=== PATIENT | female | born 1950 | race American Indian/Alaskan Native ===

== ENCOUNTER 2017-11-29 02:58 | Inpatient (IN) | payer MEDICARE, OTHER ==
[2017-11-29 03:42] LABS: Basophils # (Auto) 0.1 K/mm3 (0.0-0.1); Basophils % (Auto) 0.7 % (0.0-1.8); Eosinophils # (Auto) 0.3 K/mm3 (0.0-0.4); Eosinophils % (Auto) 3.6 % (0.0-4.3); Hematocrit 42.3 % (30.3-42.9); Lymphocytes # (Auto) 3.3 K/mm3 (1.2-5.4); Lymphocytes % (Auto) 43.4 % (13.4-35.0); Mean Corpuscular HGB Conc 33 % (30-34); Mean Corpuscular Hemoglobin 30 pg (28-32); Mean Corpuscular Volume 90 fl (79-97); Monocytes # (Auto) 0.6 K/mm3 (0.0-0.8); Monocytes % (Auto) 7.4 % (0.0-7.3); Platelet Count 254 K/mm3 (140-440); Red Blood Count 4.71 M/mm3 (3.65-5.03); Red Cell Distribution Width 14.4 % (13.2-15.2)
[2017-11-29] MEDS ORDERED: ZOFRAN ONE ×2 (03:49→09:54)
[2017-11-29] MEDS ORDERED: ZOFRAN IV ONE (03:51)
[2017-11-29] MEDS ORDERED: DILAUDID IV ONE ×3 (03:55→05:14)
[2017-11-29] MEDS ORDERED: DILAUDID ONE (03:56)
[2017-11-29] MEDS ORDERED: NACL 0.9% 1000 ML 1,000 ML IV ONE (03:56)
[2017-11-29 04:25] LABS: Alanine Aminotransferase 21 units/L (7-56); Albumin 4.1 g/dL (3.9-5); BUN/Creatinine Ratio 21; Blood Urea Nitrogen 15 mg/dL (7-17); Calcium 9.6 mg/dL (8.4-10.2); Hemolysis Index 13
[2017-11-29 04:30] LABS: Bilirubin,Urine NEG (Negative); Blood,Urine NEG (Negative); Color,Urine Yellow (Yellow); Mucus,Urine FEW /HPF; Protein,Urine <15 mg/dL mg/dL (Negative); Urobilinogen,Urine < 2.0 mg/dL (<2.0)
[2017-11-29] MEDS ORDERED: NACL ONE (04:30)
--- NOTE | 2017-11-29 05:08 | Cat Scan Report ---
FINAL REPORT EXAM: CT ABDOMEN PELVIS W CON HISTORY: ruq, epigstric pain, vomiting TECHNIQUE: CT images are acquired through the Abdomen and Pelvis following intravenous administration of contrast. Transaxial, coronal and sagittal reformations are provided. PRIORS: None FINDINGS: Partially visualized intrathoracic contents are remarkable for bibasilar atelectasis/scarring. Distended gallbladder without pericholecystic inflammatory findings or calcified cholelithiasis identified. The liver, pancreas, spleen, and adrenal glands are unremarkable. Kidneys show no worrisome lesions, hydronephrosis, or calculi. A right upper pole simple renal cyst measures about 11 millimeters in greatest dimension. Urinary bladder is unremarkable. Pelvic phleboliths are noted. Prior hysterectomy. Small and large bowel are normal in caliber. Extensive sigmoid diverticulosis without surrounding inflammatory findings. Appendix is normal. No free air, free fluid, or lymphadenopathy identified. Aorta is normal in course and caliber. Superficial soft tissues are unremarkable. No acute or aggressive appearing skeletal findings. IMPRESSION: Distended gallbladder without calcified cholelithiasis or pericholecystic inflammatory findings identified. Consider ultrasound follow-up.
--- NOTE | 2017-11-29 05:15 | Emergency Department Report ---
ED Abdominal Pain HPI - General Chief Complaint: Abdominal Pain Stated Complaint: ABDOMINAL PAIN Time Seen by Provider: 11/29/17 03:47 Source: patient Mode of arrival: Ambulatory Limitations: No Limitations - History of Present Illness Initial Comments: 57 year old female with a past surgical history of hysterectomy and no past medical history presents to hospital with complaints of abdominal pain with sudden onset at 1 AM. Pain started after she ate a grilled cheese sandwich. Pain in the right upper quadrant pain and epigastric pain that is constant, sharp, and worse with palpation. Pain rated 8/10 in intensity. No alleviating factors. Positive nausea with vomiting that started after arrival to the ED. She denies diarrhea or fever. Severity scale (0 -10): 7 - Related Data Previous Rx's Medication Instructions Recorded Last Taken Type Ondansetron [Zofran Odt] 4 mg PO Q8HR PRN #20 tab.rapdis 11/29/17 Unknown Rx Oxycodone HCl/Acetaminophen 1 each PO Q6HR PRN #20 tablet 11/29/17 Unknown Rx [Percocet 2.5/325 mg] Allergies Allergy/AdvReac Type Severity Reaction Status Date / Time naproxen AdvReac Unknown Verified 11/29/17 03:15 vancomycin AdvReac Itching Verified 11/29/17 14:24 ED Review of Systems ROS: Stated complaint: ABDOMINAL PAIN Other details as noted in HPI Comment: All other systems reviewed and negative ED Past Medical Hx - Past Medical History Previous Medical History?: No - Surgical History Past Surgical History?: Yes Additional Surgical History: hysterectomy - Social History Smoking Status: Never Smoker Substance Use Type: None - Medications Home Medications: Home Medications Medication Instructions Recorded Confirmed Last Taken Type Ondansetron [Zofran Odt] 4 mg PO Q8HR PRN #20 tab.rapdis 11/29/17 Unknown Rx Oxycodone HCl/Acetaminophen 1 each PO Q6HR PRN #20 tablet 11/29/17 Unknown Rx [Percocet 2.5/325 mg] ED Physical Exam - General Limitations: No Limitations - Other Other exam information: General: No limitations, moderate distress secondary to pain Head exam: Atraumatic, normocephalic Eyes exam: Normal appearance, nonicteric sclera ENT: Moist mucous membrane, normal oropharynx Neck exam: Normal inspection, full range of motion, no meningismus nontender Respiratory exam: Clear to auscultation bilateral, no wheezes, rales, crackles Cardiovascular: Normal rate and rhythm, normal heart sounds Abdomen: Soft, nondistended, right upper quadrant and epigastric tenderness. Normal bowel sounds. No rebound or guarding Extremity: Full range of motion normal inspection no deformity Back: Normal Inspection, full range of motion, no tenderness Neurologic: Alert, oriented x3, cranial nerves intact, no motor or sensory deficit Psychiatric: normal affect, normal mood Skin: Warm, dry, intact ED Course Vital Signs 11/29/17 11/29/17 11/29/17 02:58 03:11 03:58 Temperature 97.6 F 97.6 F Pulse Rate 93 H 95 H Respiratory 18 18 18 Rate Blood Pressure 172/102 172/102 Blood Pressure [Right] O2 Sat by Pulse 99 99 Oximetry 11/29/17 11/29/17 11/29/17 04:28 04:29 05:17 Temperature Pulse Rate 89 Respiratory 18 18 18 Rate Blood Pressure Blood Pressure 136/65 [Right] O2 Sat by Pulse 99 Oximetry 11/29/17 11/29/17 07:00 11:04 Temperature 97.6 F Pulse Rate 92 H Respiratory 16 16 Rate Blood Pressure Blood Pressure 156/76 126/70 [Right] O2 Sat by Pulse 100 100 Oximetry - Reevaluation(s) Reevaluation #1: 11/29/17 05:15 After 1 mg of Dilaudid. She continues to have significant pain and states it is only a little bit better. No further vomiting after Zofran. Patient also received 1 L normal saline. Patient informed that her gallbladder looks distended on ct and she will be sent to ultrasound for further evaluation. Additional Dilaudid 0.5 mg order. - Consultations Consultation #1: Dr Guzman was consulted prior to admission ED Medical Decision Making - Lab Data Result diagrams: 11/30/17 06:08 11/30/17 06:08 - Radiology Data Radiology results: report reviewed CT abdomen and pelvis IV contrast: Distended gallbladder without calcified cholelithiasis or pericholecystic inflammatory findings. Consider ultrasound diverticulosis without diverticulitis. Right renal cyst - Medical Decision Making Abdominal pain Likely secondary to gallbladder CT shows distended gallbladder No leukocytosis, normal LFTs, and no fever Patient requiring multiple doses of narcotics for pain control Ultrasound pending and oncoming physician (Dr Villeda) to follow She may need surgical consultation if she continues to have intractable pain ultrasound reveals surgical treatment is necessary - Differential Diagnosis cholecystitis, pancreatitis, biliary colic, renal colic, PUD Critical care attestation.: If time is entered above; I have spent that time in minutes in the direct care of this critically ill patient, excluding procedure time. ED Disposition Clinical Impression: Biliary colic, Intractable abdominal pain Disposition: OP ADMIT IP TO THIS HOSP Is pt being admited?: No Condition: Stable Time of Disposition: 06:00 (admited to hospitalist)
--- NOTE | 2017-11-29 06:21 | Ultrasound Report ---
FINAL REPORT EXAM: US ABDOMEN LIMITED HISTORY: ruq/epigstric pain COMPARISONS: CT abdomen pelvis of the same date FINDINGS: Grayscale ultrasound evaluation of the right upper abdomen Liver is normal in size and contour. Hepatic parenchymal echogenicity is within normal limits. No parenchymal lesion identified. No intra or extrahepatic biliary ductal dilatation. The common duct measures approximately 4-5 millimeters in caliber. The gallbladder is full of sludge and stones measuring up to at least 15 millimeters in greatest dimension. Gallbladder wall measures approximately 3 millimeters in thickness. Imaged portion of the pancreatic head is sonographically unremarkable. The remainder of the pancreas is not well seen secondary to overlying bowel gas. No abdominal ascites or free fluid in Tesfaye's pouch. The right kidney measures up to 7.1 for cm in length and is without hydronephrosis or echogenic shadowing foci to suggest nephrolithiasis. IMPRESSION: The gallbladder is full of sludge and stones with mild/equivocal wall thickening suggestive of cholecystitis. Consider nuclear medicine hepatobiliary scan if clinical findings are equivocal or discordant.
--- NOTE | 2017-11-29 06:57 | Emergency Department Report ---
Blank Doc - Documentation Documentation: This patient was signed out to me by my colleague overnight, Dr. Myers with an ultrasound showing concern for equivocal cholecystitis with gallstones, gallbladder sludge and some mild wall thickening. I spoke with the surgeon instrumentation fitter, Dr. Guzman, who is agreed to see the patient is a consult and agrees with the plan to get a HIDA scan and like the patient admitted to the hospitalist service. I also spoke with Dr. Agustin at [facility] and after their discussion with a [facility] surgeon, we have been given permission to keep the patient here for further evaluation and treatment.
[2017-11-29] MEDS ORDERED: TYLENOL PO PRN (08:40)
[2017-11-29] MEDS ORDERED: ZOFRAN IV PRN (08:40)
[2017-11-29] MEDS ORDERED: SODIUM CHLORIDE FLUSH SYRINGE 10 ML IV PRN (08:40)
--- NOTE | 2017-11-29 08:40 | History and Physical Report ---
History of Present Illness Date of examination: 11/29/17 Date of admission: 11/29/17 Chief complaint: abd pain History of present illness: The patient is a 50 year old female admitted with a 3 day history of body aches , chills, chest pain, mild diarrhea and an increase in LLQ discomfort which she has had for at least a month. Consultation was requested for abdominal pain. She has had no fever and denies passing BRBPR or melenic stools. No history of weight loss. The patient has never had a colonoscopy. CT scan revealed no definite diverticulitis although the colon was collapsed in the left side and less sensitive for evaluation of wall thickening. An ultrasound showing concern for equivocal cholecystitis with gallstones, gallbladder sludge and some mild wall thickening. The ER physician spoke with Dr. Agustin at [facility] and after their discussion with a [facility] surgeon, gave permission to keep the patient here for further evaluation and treatment. The patient will be admitted to the hospitalist service. Patient denies any shortness of breath. No headache or visual disturbances. Past History Past Medical History: No medical history Past Surgical History: hysterectomy Social history: no significant social history Family history: no significant family history Medications and Allergies Allergies Allergy/AdvReac Type Severity Reaction Status Date / Time naproxen AdvReac Unknown Verified 11/29/17 03:15 Home Medications Medication Instructions Recorded Confirmed Last Taken Type Ondansetron [Zofran Odt] 4 mg PO Q8HR PRN #20 tab.rapdis 11/29/17 Unknown Rx Oxycodone HCl/Acetaminophen 1 each PO Q6HR PRN #20 tablet 11/29/17 Unknown Rx [Percocet 2.5/325 mg] Review of Systems All systems: negative Exam - Constitutional Vitals: Temp Pulse Resp BP Pulse Ox 97.6 F 89 18 136/65 99 11/29/17 03:11 11/29/17 05:17 11/29/17 05:17 11/29/17 05:17 11/29/17 05:17 General appearance: Present: no acute distress, well-nourished - EENT Eyes: Present: PERRL ENT: hearing intact, clear oral mucosa - Neck Neck: Present: supple, normal ROM - Respiratory Respiratory effort: normal Respiratory: bilateral: diminished - Cardiovascular Heart Sounds: Present: S1 & S2. Absent: rub, click - Extremities Extremities: pulses symmetrical, No edema Peripheral Pulses: within normal limits - Abdominal General gastrointestinal: Present: soft, tender, non-distended, normal bowel sounds Localized gastrointestinal: tender: RUQ Female genitourinary: Present: normal - Integumentary Integumentary: Present: clear, warm, dry - Musculoskeletal Musculoskeletal: gait normal, strength equal bilaterally - Psychiatric Psychiatric: appropriate mood/affect, intact judgment & insight - Neurologic Neurologic: CNII-XII intact, moves all extremities Results - Labs CBC & Chem 7: 11/29/17 03:23 11/29/17 03:23 Labs: Laboratory Last Values WBC 7.7 K/mm3 (4.5-11.0) 11/29/17 03:23 RBC 4.71 M/mm3 (3.65-5.03) 11/29/17 03:23 Hgb 14.0 gm/dl (10.1-14.3) 11/29/17 03:23 Hct 42.3 % (30.3-42.9) 11/29/17 03:23 MCV 90 fl (79-97) 11/29/17 03:23 MCH 30 pg (28-32) 11/29/17 03:23 MCHC 33 % (30-34) 11/29/17 03:23 RDW 14.4 % (13.2-15.2) 11/29/17 03:23 Plt Count 254 K/mm3 (140-440) 11/29/17 03:23 Lymph % (Auto) 43.4 % (13.4-35.0) H 11/29/17 03:23 Luce % (Auto) 7.4 % (0.0-7.3) H 11/29/17 03:23 Eos % (Auto) 3.6 % (0.0-4.3) 11/29/17 03:23 Baso % (Auto) 0.7 % (0.0-1.8) 11/29/17 03:23 Lymph # 3.3 K/mm3 (1.2-5.4) 11/29/17 03:23 Luce # 0.6 K/mm3 (0.0-0.8) 11/29/17 03:23 Eos # 0.3 K/mm3 (0.0-0.4) 11/29/17 03:23 Baso # 0.1 K/mm3 (0.0-0.1) 11/29/17 03:23 Seg Neutrophils % 44.9 % (40.0-70.0) 11/29/17 03:23 Seg Neutrophils # 3.4 K/mm3 (1.8-7.7) 11/29/17 03:23 Sodium 140 mmol/L (137-145) 11/29/17 03:23 Potassium 4.5 mmol/L (3.6-5.0) 11/29/17 03:23 Chloride 101.0 mmol/L (98-107) 11/29/17 03:23 Carbon Dioxide 28 mmol/L (22-30) 11/29/17 03:23 Anion Gap 16 mmol/L 11/29/17 03:23 BUN 15 mg/dL (7-17) 11/29/17 03:23 Creatinine 0.7 mg/dL (0.7-1.2) 11/29/17 03:23 Estimated GFR > 60 ml/min 11/29/17 03:23 BUN/Creatinine Ratio 21 % 11/29/17 03:23 Glucose 137 mg/dL (65-100) H 11/29/17 03:23 Calcium 9.6 mg/dL (8.4-10.2) 11/29/17 03:23 Total Bilirubin < 0.20 mg/dL (0.1-1.2) 11/29/17 03:23 AST 18 units/L (5-40) 11/29/17 03:23 ALT 21 units/L (7-56) 11/29/17 03:23 Alkaline Phosphatase 123 units/L (35-129) 11/29/17 03:23 Total Protein 7.7 g/dL (6.3-8.2) 11/29/17 03:23 Albumin 4.1 g/dL (3.9-5) 11/29/17 03:23 Albumin/Globulin Ratio 1.1 % 11/29/17 03:23 Lipase 33 units/L (13-60) 11/29/17 03:23 Urine Color Yellow (Yellow) 11/29/17 03:50 Urine Turbidity Clear (Clear) 11/29/17 03:50 Urine pH 5.0 (5.0-7.0) 11/29/17 03:50 Ur Specific [place] 1.018 (1.003-1.030) 11/29/17 03:50 Urine Protein <15 mg/dl mg/dL (Negative) 11/29/17 03:50 Urine Glucose (UA) Neg mg/dL (Negative) 11/29/17 03:50 Urine Ketones Neg mg/dL (Negative) 11/29/17 03:50 Urine Blood Neg (Negative) 11/29/17 03:50 Urine Nitrite Neg (Negative) 11/29/17 03:50 Urine Bilirubin Neg (Negative) 11/29/17 03:50 Urine Urobilinogen < 2.0 mg/dL (<2.0) 11/29/17 03:50 Ur Leukocyte Esterase Neg (Negative) 11/29/17 03:50 Urine WBC (Auto) 1.0 /HPF (0.0-6.0) 11/29/17 03:50 Urine RBC (Auto) 1.0 /HPF (0.0-6.0) 11/29/17 03:50 U Epithel Cells (Auto) 4.0 /HPF (0-13.0) 11/29/17 03:50 Urine WBC Clumps 1+ /HPF 11/29/17 03:50 Urine Mucus Few /HPF 11/29/17 03:50 Assessment and Plan Assessment and plan: Acute cholecystitis. Ultrasound reveals gallbladder full of slow its/stones with wall thickening suggestive of cholecystitis. We will obtain HIDA scan and surgical consultation for further evaluation. The patient will be admitted and started on IV antibiotics. Abdominal pain. Etiology secondary to above.
[2017-11-29] MEDS ORDERED: VANCOMYCIN PHARMACY TO DOSE IV SCH (09:00)
[2017-11-29] MEDS ORDERED: NACL 0.9% 1000 ML 1,000 ML IV SCH (09:00)
[2017-11-29] MEDS ORDERED: VANCOMYCIN 1,750 MG in NACL 0.9% 500 ML 500 ML IV ONE (09:15)
[2017-11-29] MEDS ORDERED: MORPHINE ONE (09:54)
[2017-11-29] MEDS: MORPHINE IV PRN ×3 (10:03→23:55)
[2017-11-29] MEDS: SODIUM CHLORIDE FLUSH SYRINGE 10 ML IV SCH ×2 (11:01→22:55)
[2017-11-29] MEDS ORDERED: LOVENOX SUB-Q ONE (11:08)
[2017-11-29] MEDS: LOVENOX SUB-Q SCH (11:24)
[2017-11-29] MEDS ORDERED: ZOSYN/NS 4.5GM/100ML 4.5 GM/100 ML VIAL IV SCH (14:00)
--- NOTE | 2017-11-29 14:03 | Progress Note ---
Assessment and Plan Full consult dictated 11/29/17 Chief complaint: abd pain History of present illness: The patient is a 50 year old female admitted with a 3 day history of body aches , chills, chest pain, mild diarrhea and an increase in LLQ discomfort which she has had for at least a month. Consultation was requested for abdominal pain. She has had no fever and denies passing BRBPR or melenic stools. No history of weight loss. The patient has never had a colonoscopy. CT scan revealed no definite diverticulitis although the colon was collapsed in the left side and less sensitive for evaluation of wall thickening. An ultrasound showing concern for equivocal cholecystitis with gallstones, gallbladder sludge and some mild wall thickening. The ER physician spoke with Dr. Agustin at [facility] and after their discussion with a [facility] surgeon, gave permission to keep the patient here for further evaluation and treatment. The patient will be admitted to the hospitalist service. Patient denies any shortness of breath. No headache or visual disturbances. Past History Past Medical History: No medical history Past Surgical History: hysterectomy Social history: no significant social history Family history: no significant family history Pt feeling much better this am. Abd soft, mild epig & RUQ tenderness GB U/S - sludge & stones r/o acute cholecystitis awaiting HIDA scan had reaction to Vanc. d/c Vanc & Zosyn will switch to Levaquin Selected Entries 11/29/17 11/29/17 12:26 12:32 Temperature 98.2 F Pulse Rate 89 Blood Pressure 115/66 Laboratory Tests 11/29/17 11/29/17 11/29/17 03:23 03:23 03:23 WBC 7.7 Hgb 14.0 Hct 42.3 Sodium 140 Potassium 4.5 Chloride 101.0 Carbon Dioxide 28 BUN 15 Creatinine 0.7 Total Bilirubin < 0.20 AST 18 ALT 21 Alkaline Phosphatase 123 Lipase 33 Objective Vital Signs - 12hr 11/29/17 11/29/17 11/29/17 02:58 03:11 03:58 Temperature 97.6 F 97.6 F Pulse Rate 93 H 95 H Respiratory 18 18 18 Rate Blood Pressure 172/102 172/102 Blood Pressure [Right] O2 Sat by Pulse 99 99 Oximetry 11/29/17 11/29/17 11/29/17 04:28 04:29 05:17 Temperature Pulse Rate 89 Respiratory 18 18 18 Rate Blood Pressure Blood Pressure 136/65 [Right] O2 Sat by Pulse 99 Oximetry 11/29/17 11/29/17 11/29/17 07:00 11:04 12:26 Temperature 97.6 F 98.2 F Pulse Rate 92 H Respiratory 16 16 15 Rate Blood Pressure 115/66 Blood Pressure 156/76 126/70 [Right] O2 Sat by Pulse 100 100 Oximetry 11/29/17 12:32 Temperature Pulse Rate 89 Respiratory Rate Blood Pressure Blood Pressure [Right] O2 Sat by Pulse Oximetry - Labs 11/29/17 03:23 11/29/17 03:23 Diabetes panel 11/29/17 Range/Units 03:23 Sodium 140 (137-145) mmol/L Potassium 4.5 (3.6-5.0) mmol/L Chloride 101.0 (98-107) mmol/L Carbon Dioxide 28 (22-30) mmol/L BUN 15 (7-17) mg/dL Creatinine 0.7 (0.7-1.2) mg/dL Glucose 137 H (65-100) mg/dL Calcium 9.6 (8.4-10.2) mg/dL AST 18 (5-40) units/L ALT 21 (7-56) units/L Alkaline Phosphatase 123 (35-129) units/L Total Protein 7.7 (6.3-8.2) g/dL Albumin 4.1 (3.9-5) g/dL Calcium panel 11/29/17 Range/Units 03:23 Calcium 9.6 (8.4-10.2) mg/dL Albumin 4.1 (3.9-5) g/dL Pituitary panel 11/29/17 Range/Units 03:23 Sodium 140 (137-145) mmol/L Potassium 4.5 (3.6-5.0) mmol/L Chloride 101.0 (98-107) mmol/L Carbon Dioxide 28 (22-30) mmol/L BUN 15 (7-17) mg/dL Creatinine 0.7 (0.7-1.2) mg/dL Glucose 137 H (65-100) mg/dL Calcium 9.6 (8.4-10.2) mg/dL Adrenal panel 11/29/17 Range/Units 03:23 Sodium 140 (137-145) mmol/L Potassium 4.5 (3.6-5.0) mmol/L Chloride 101.0 (98-107) mmol/L Carbon Dioxide 28 (22-30) mmol/L BUN 15 (7-17) mg/dL Creatinine 0.7 (0.7-1.2) mg/dL Glucose 137 H (65-100) mg/dL Calcium 9.6 (8.4-10.2) mg/dL Total Bilirubin < 0.20 (0.1-1.2) mg/dL AST 18 (5-40) units/L ALT 21 (7-56) units/L Alkaline Phosphatase 123 (35-129) units/L Total Protein 7.7 (6.3-8.2) g/dL Albumin 4.1 (3.9-5) g/dL
--- NOTE | 2017-11-29 14:20 | Event Note ---
Date: 11/29/17 Nurse reports patient had a reaction to vancomycin with pruritis. Therefore, we will switch antibiotics to Levaquin.
[2017-11-29] MEDS: D5/0.45NS 1,000 ML IV SCH (14:48)
[2017-11-29] MEDS: LEVAQUIN 750MG/150ML 750 MG/150 ML BAG IV SCH (14:59)
[2017-11-29] MEDS ORDERED: VANCOMYCIN 1,250 MG in NACL 0.9% 250ML 250 ML IV SCH (22:00)
--- NOTE | 2017-11-30 00:11 | Consultation ---
REASON FOR CONSULTATION: Rule out cholecystitis. HISTORY OF PRESENT ILLNESS: The patient is a 67-year-old pleasant female, who was admitted to the Emergency Room with recent onset of epigastric and right upper quadrant abdominal pain accompanied by nausea and vomiting. PAST MEDICAL HISTORY: Pertinent for GERD. PAST SURGICAL HISTORY: Status post MONIKA, also bilateral knee arthroscopies. ALLERGIES: ALLERGIC TO NAPROSYN AND ASPIRIN, which causes her to have a " MEDICATIONS: Include Prilosec for her GERD. FAMILY HISTORY: Ovarian cancer. SOCIAL HISTORY: Occasional ethanol intake, but quit smoking approximately 40 years ago. REVIEW OF SYSTEMS: Noncontributory. PHYSICAL EXAMINATION: GENERAL: At this time reveals the patient to be awake, alert, cooperative, in no acute distress. VITAL SIGNS: Showed her to be afebrile with a temperature of 98.2, blood pressure is 115/66, pulse of 89, respirations of 15. HEENT: Pupils are equal and reactive to light and accommodation. Sclerae are nonicteric. ABDOMEN: Examination of the abdomen reveals her to be moderately obese, soft. There is mild epigastric and right upper quadrant tenderness with very minimal guarding and no rebound at this time. Bowel sounds are present. LABORATORY DATA: Lab work at present includes a CBC, which shows a white count of 7.7, H and H is 14 and 42. Electrolytes are essentially within normal limits. LFTs are also essentially normal including a total bilirubin of less than 0.2, AST is 18, ALT 21, alkaline phosphatase is 123, lipase is 33. A CT scan of the abdomen has been performed, which revealed distended gallbladder, but without any calcified stones and an ultrasound was recommended. Subsequent gallbladder ultrasound was performed, which reveals a gallbladder full of sludge and stones with questionable mild wall thickening and a HIDA scan is recommended. The patient states she is feeling last night on admission. IMPRESSION: At this time is that of a 67-year-old female with: 1. No real medical problems other than gastroesophageal reflux disease. 2. Rule out acute cholecystitis versus biliary colic. RECOMMENDATIONS: To keep the patient n.p.o. at this time. The patient was on vancomycin and Zosyn, but apparently just had a reaction to her dose of vancomycin. Thus, we will discontinue the vancomycin and Zosyn and start IV Levaquin. Also, we will await the HIDA scan results and follow her with you. Thank you very much for consultation. JOB# [id number] VÍCTRO/ROSEY
[2017-11-30] MEDS: D5/0.45NS 1,000 ML IV SCH ×3 (00:21→21:09)
[2017-11-30 06:54] LABS: Basophils % (Auto) 0.6 % (0.0-1.8); Eosinophils # (Auto) 0.2 K/mm3 (0.0-0.4); Eosinophils % (Auto) 3.9 % (0.0-4.3); Hematocrit 36.1 % (30.3-42.9); Hemoglobin 11.5 gm/dl (10.1-14.3); Lymphocytes # (Auto) 2.1 K/mm3 (1.2-5.4); Lymphocytes % (Auto) 45.3 % (13.4-35.0); Mean Corpuscular HGB Conc 32 % (30-34); Mean Corpuscular Hemoglobin 29 pg (28-32); Mean Corpuscular Volume 92 fl (79-97); Monocytes # (Auto) 0.4 K/mm3 (0.0-0.8); Monocytes % (Auto) 8.9 % (0.0-7.3); Platelet Count 210 K/mm3 (140-440); Red Cell Distribution Width 14.6 % (13.2-15.2)
[2017-11-30 07:24] LABS: BUN/Creatinine Ratio 10; Blood Urea Nitrogen 7 mg/dL (7-17); Calcium 8.3 mg/dL (8.4-10.2); Hemolysis Index 1
[2017-11-30] MEDS: SODIUM CHLORIDE FLUSH SYRINGE 10 ML IV SCH ×2 (08:00→21:10)
[2017-11-30] MEDS: LOVENOX SUB-Q SCH (10:08)
--- NOTE | 2017-11-30 10:33 | Progress Note ---
Assessment and Plan Assessment and plan: Acute cholecystitis. Ultrasound reveals gallbladder full of sludge/stones with wall thickening suggestive of cholecystitis. Await HIDA scan results. Continue IV antibiotics. Surgery following. Abdominal pain. Etiology secondary to above. History Interval history: No new issues overnight. Hospitalist Physical - Constitutional Vitals: Temp Pulse Resp BP Pulse Ox 99.1 F 115 H 18 103/62 100 11/29/17 22:41 11/29/17 22:41 11/29/17 23:55 11/29/17 22:41 11/29/17 22:41 General appearance: Present: no acute distress, well-nourished - EENT Eyes: Present: PERRL, EOM intact ENT: hearing intact, clear oral mucosa, dentition normal - Neck Neck: Present: supple, normal ROM - Respiratory Respiratory effort: normal Respiratory: bilateral: CTA - Cardiovascular Rhythm: regular Heart Sounds: Present: S1 & S2. Absent: gallop, rub - Extremities Extremities: no ischemia, No edema, Full ROM - Abdominal General gastrointestinal: soft, non-tender, non-distended, normal bowel sounds - Integumentary Integumentary: Present: clear, warm, dry - Neurologic Neurologic: CNII-XII intact, moves all extremities Results - Labs CBC & Chem 7: 11/30/17 06:08 11/30/17 06:08 Labs: Laboratory Last Values WBC 4.7 K/mm3 (4.5-11.0) 11/30/17 06:08 RBC 3.90 M/mm3 (3.65-5.03) 11/30/17 06:08 Hgb 11.5 gm/dl (10.1-14.3) 11/30/17 06:08 Hct 36.1 % (30.3-42.9) D 11/30/17 06:08 MCV 92 fl (79-97) 11/30/17 06:08 MCH 29 pg (28-32) 11/30/17 06:08 MCHC 32 % (30-34) 11/30/17 06:08 RDW 14.6 % (13.2-15.2) 11/30/17 06:08 Plt Count 210 K/mm3 (140-440) 11/30/17 06:08 Lymph % (Auto) 45.3 % (13.4-35.0) H 11/30/17 06:08 [place] % (Auto) 8.9 % (0.0-7.3) H 11/30/17 06:08 Eos % (Auto) 3.9 % (0.0-4.3) 11/30/17 06:08 Baso % (Auto) 0.6 % (0.0-1.8) 11/30/17 06:08 Lymph # 2.1 K/mm3 (1.2-5.4) 11/30/17 06:08 [place] # 0.4 K/mm3 (0.0-0.8) 11/30/17 06:08 Eos # 0.2 K/mm3 (0.0-0.4) 11/30/17 06:08 Baso # 0.0 K/mm3 (0.0-0.1) 11/30/17 06:08 Seg Neutrophils % 41.3 % (40.0-70.0) 11/30/17 06:08 Seg Neutrophils # 1.9 K/mm3 (1.8-7.7) 11/30/17 06:08 Sodium 140 mmol/L (137-145) 11/30/17 06:08 Potassium 3.6 mmol/L (3.6-5.0) 11/30/17 06:08 Chloride 102.6 mmol/L (98-107) 11/30/17 06:08 Carbon Dioxide 28 mmol/L (22-30) 11/30/17 06:08 Anion Gap 13 mmol/L 11/30/17 06:08 BUN 7 mg/dL (7-17) 11/30/17 06:08 Creatinine 0.7 mg/dL (0.7-1.2) 11/30/17 06:08 Estimated GFR > 60 ml/min 11/30/17 06:08 BUN/Creatinine Ratio 10 % 11/30/17 06:08 Glucose 133 mg/dL (65-100) H 11/30/17 06:08 Calcium 8.3 mg/dL (8.4-10.2) L 11/30/17 06:08 Total Bilirubin < 0.20 mg/dL (0.1-1.2) 11/29/17 03:23 AST 18 units/L (5-40) 11/29/17 03:23 ALT 21 units/L (7-56) 11/29/17 03:23 Alkaline Phosphatase 123 units/L (35-129) 11/29/17 03:23 Total Protein 7.7 g/dL (6.3-8.2) 11/29/17 03:23 Albumin 4.1 g/dL (3.9-5) 11/29/17 03:23 Albumin/Globulin Ratio 1.1 % 11/29/17 03:23 Lipase 33 units/L (13-60) 11/29/17 03:23 Urine Color Yellow (Yellow) 11/29/17 03:50 Urine Turbidity Clear (Clear) 11/29/17 03:50 Urine pH 5.0 (5.0-7.0) 11/29/17 03:50 Ur Specific [place] 1.018 (1.003-1.030) 11/29/17 03:50 Urine Protein <15 mg/dl mg/dL (Negative) 11/29/17 03:50 Urine Glucose (UA) Neg mg/dL (Negative) 11/29/17 03:50 Urine Ketones Neg mg/dL (Negative) 11/29/17 03:50 Urine Blood Neg (Negative) 11/29/17 03:50 Urine Nitrite Neg (Negative) 11/29/17 03:50 Urine Bilirubin Neg (Negative) 11/29/17 03:50 Urine Urobilinogen < 2.0 mg/dL (<2.0) 11/29/17 03:50 Ur Leukocyte Esterase Neg (Negative) 11/29/17 03:50 Urine WBC (Auto) 1.0 /HPF (0.0-6.0) 11/29/17 03:50 Urine RBC (Auto) 1.0 /HPF (0.0-6.0) 11/29/17 03:50 U Epithel Cells (Auto) 4.0 /HPF (0-13.0) 11/29/17 03:50 Urine WBC Clumps 1+ /HPF 11/29/17 03:50 Urine Mucus Few /HPF 11/29/17 03:50
--- NOTE | 2017-11-30 10:59 | Nuclear Medicine Report ---
HEPATOBILIARY SCAN: History: Abdominal pain, gallstones. Following the injection of the radionuclide, serial scanning was obtained over the right upper quadrant. Initial imaging of the liver demonstrates a relatively normal activity pattern. Progressive concentration of the radionuclide in the bile ducts, with filling of both the gallbladder and small bowel, is identified within a normal time period. IMPRESSION: Normal biliary system.
--- NOTE | 2017-11-30 11:58 | Progress Note ---
Assessment and Plan Pt feeling well. no further pain Abd soft, non tender at present HIDA - GB visualized. neg acute cholecystitis attempt low fat cl liq diet Selected Entries 11/29/17 11/29/17 11/29/17 22:34 22:41 23:55 Temperature 99.1 F Pulse Rate 79 Respiratory 18 Rate Blood Pressure 103/62 Laboratory Tests 11/30/17 06:08 WBC 4.7 Hgb 11.5 Hct 36.1 D Objective - Labs 11/30/17 06:08 11/30/17 06:08 Diabetes panel 11/30/17 Range/Units 06:08 Sodium 140 (137-145) mmol/L Potassium 3.6 (3.6-5.0) mmol/L Chloride 102.6 (98-107) mmol/L Carbon Dioxide 28 (22-30) mmol/L BUN 7 (7-17) mg/dL Creatinine 0.7 (0.7-1.2) mg/dL Glucose 133 H (65-100) mg/dL Calcium 8.3 L (8.4-10.2) mg/dL Calcium panel 11/30/17 Range/Units 06:08 Calcium 8.3 L (8.4-10.2) mg/dL Pituitary panel 11/30/17 Range/Units 06:08 Sodium 140 (137-145) mmol/L Potassium 3.6 (3.6-5.0) mmol/L Chloride 102.6 (98-107) mmol/L Carbon Dioxide 28 (22-30) mmol/L BUN 7 (7-17) mg/dL Creatinine 0.7 (0.7-1.2) mg/dL Glucose 133 H (65-100) mg/dL Calcium 8.3 L (8.4-10.2) mg/dL Adrenal panel 11/30/17 Range/Units 06:08 Sodium 140 (137-145) mmol/L Potassium 3.6 (3.6-5.0) mmol/L Chloride 102.6 (98-107) mmol/L Carbon Dioxide 28 (22-30) mmol/L BUN 7 (7-17) mg/dL Creatinine 0.7 (0.7-1.2) mg/dL Glucose 133 H (65-100) mg/dL Calcium 8.3 L (8.4-10.2) mg/dL
[2017-11-30] MEDS: LEVAQUIN 750MG/150ML 750 MG/150 ML BAG IV SCH (14:12)
[2017-11-30] MEDS: MORPHINE IV PRN (19:46)
[2017-12-01] MEDS: D5/0.45NS 1,000 ML IV SCH (04:10)
[2017-12-01] MEDS: MORPHINE IV PRN (04:21)
[2017-12-01 08:08] LABS: Basophils % (Auto) 0.7 % (0.0-1.8); Eosinophils # (Auto) 0.2 K/mm3 (0.0-0.4); Eosinophils % (Auto) 4.7 % (0.0-4.3); Hematocrit 35.6 % (30.3-42.9); Hemoglobin 11.9 gm/dl (10.1-14.3); Lymphocytes # (Auto) 2.3 K/mm3 (1.2-5.4); Lymphocytes % (Auto) 44.7 % (13.4-35.0); Mean Corpuscular HGB Conc 34 % (30-34); Mean Corpuscular Hemoglobin 30 pg (28-32); Mean Corpuscular Volume 90 fl (79-97); Monocytes # (Auto) 0.4 K/mm3 (0.0-0.8); Monocytes % (Auto) 7.5 % (0.0-7.3); Platelet Count 194 K/mm3 (140-440); Red Blood Count 3.96 M/mm3 (3.65-5.03); Red Cell Distribution Width 14.7 % (13.2-15.2)
[2017-12-01 08:33] LABS: BUN/Creatinine Ratio 8; Blood Urea Nitrogen 5 mg/dL (7-17); Calcium 8.7 mg/dL (8.4-10.2); Hemolysis Index 7
[2017-12-01 09:15] VITALS: BP 135/78
--- NOTE | 2017-12-01 09:28 | Discharge Summary ---
Providers - Providers Date of Admission: 11/29/17 08:42 Date of discharge: 12/01/17 Attending physician: SIDDHARTH KING 11/29/17 06:33 Consult to Physician [CONS] Routine Comment: Consulting Provider: ESTUARDO ASHLEY Physician Instructions: Reason For Exam: cholecystitis` Primary care physician: DRAKE RESTREPO Hospitalization Condition: Stable Hospital course: 50 year old female admitted with a 3 day history of body aches, chills, chest pain, mild diarrhea and an increase in RUQ discomfort which she has had for at least a month. Ultrasound revealed gallbladder full of sludge/stones with wall thickening suggestive of cholecystitis. Acute cholecystitis was ruled out with HIDA scan. Patient will continue antibiotics and follow up with general surgeon Dr. Porter within 3 days for elective cholecystectomy. Discharge diagnoses Abdominal pain Gallbladder sludge and stones Disposition: TO HOME OR SELFCARE Time spent for discharge: 33 minutes Core Measure Documentation - Palliative Care Palliative Care/ Comfort Measures: Not Applicable - Core Measures Any of the following diagnoses?: none Exam - Constitutional Vitals: Temp Pulse Resp BP Pulse Ox 98.2 F 75 18 135/78 96 12/01/17 07:42 12/01/17 07:42 12/01/17 07:42 12/01/17 07:42 12/01/17 07:42 General appearance: Present: no acute distress, well-nourished - EENT Eyes: Present: PERRL ENT: hearing intact, clear oral mucosa - Neck Neck: Present: supple, normal ROM - Respiratory Respiratory effort: normal Respiratory: bilateral: CTA - Cardiovascular Heart Sounds: Present: S1 & S2. Absent: rub, click - Extremities Extremities: pulses symmetrical, No edema Peripheral Pulses: within normal limits - Abdominal General gastrointestinal: Present: soft, non-tender, non-distended, normal bowel sounds - Integumentary Integumentary: Present: clear, warm, dry - Musculoskeletal Musculoskeletal: gait normal, strength equal bilaterally - Psychiatric Psychiatric: appropriate mood/affect, intact judgment & insight - Neurologic Neurologic: CNII-XII intact, moves all extremities Plan Activity: fall precautions Weight Bearing Status: Weight Bear as Tolerated Diet: low fat, low cholesterol, advance as tolerated Follow up with: ESTUARDO ASHLEY MD [Staff Physician] - 2-3 Days (surgeon ) Prescriptions: Levofloxacin [Levaquin TAB] 750 mg PO DAILY #3 tablet Ondansetron [Zofran Odt] 4 mg PO Q8HR #14 tab.rapdis Oxycodone HCl/Acetaminophen [Percocet 2.5/325 mg] 1 each PO Q6HR PRN #20 tablet PRN Reason: Pain
--- NOTE | 2017-12-01 09:53 | Progress Note ---
Assessment and Plan Pt in shower. Family states doing well without compl. jenny diet surgically stable if d/c'ed today, rto this Wednesday will schedule semi-elective lap GB at that time Selected Entries 12/01/17 07:42 Temperature 98.2 F Respiratory 18 Rate O2 Sat by Pulse 96 Oximetry Blood Pressure 135/78 Laboratory Tests 12/01/17 07:28 WBC 5.1 Hgb 11.9 Hct 35.6 Objective Vital Signs - 12hr 11/30/17 11/30/17 12/01/17 22:00 22:52 04:21 Temperature 98.5 F Pulse Rate 77 Respiratory 18 18 17 Rate Respiratory 18 Rate [Abdomen] Blood Pressure 114/64 O2 Sat by Pulse 97 Oximetry 12/01/17 12/01/17 04:51 07:42 Temperature 98.2 F Pulse Rate 75 Respiratory 16 18 Rate Respiratory Rate [Abdomen] Blood Pressure 135/78 O2 Sat by Pulse 96 Oximetry - Labs 12/01/17 07:28 12/01/17 07:28 Diabetes panel 12/01/17 Range/Units 07:28 Sodium 142 (137-145) mmol/L Potassium 3.9 (3.6-5.0) mmol/L Chloride 104.6 (98-107) mmol/L Carbon Dioxide 26 (22-30) mmol/L BUN 5 L (7-17) mg/dL Creatinine 0.6 L (0.7-1.2) mg/dL Glucose 131 H (65-100) mg/dL Calcium 8.7 (8.4-10.2) mg/dL Calcium panel 12/01/17 Range/Units 07:28 Calcium 8.7 (8.4-10.2) mg/dL Pituitary panel 12/01/17 Range/Units 07:28 Sodium 142 (137-145) mmol/L Potassium 3.9 (3.6-5.0) mmol/L Chloride 104.6 (98-107) mmol/L Carbon Dioxide 26 (22-30) mmol/L BUN 5 L (7-17) mg/dL Creatinine 0.6 L (0.7-1.2) mg/dL Glucose 131 H (65-100) mg/dL Calcium 8.7 (8.4-10.2) mg/dL Adrenal panel 12/01/17 Range/Units 07:28 Sodium 142 (137-145) mmol/L Potassium 3.9 (3.6-5.0) mmol/L Chloride 104.6 (98-107) mmol/L Carbon Dioxide 26 (22-30) mmol/L BUN 5 L (7-17) mg/dL Creatinine 0.6 L (0.7-1.2) mg/dL Glucose 131 H (65-100) mg/dL Calcium 8.7 (8.4-10.2) mg/dL
[2017-12-01] MEDS: LOVENOX SUB-Q SCH (11:52)
[2017-12-01] MEDS: SODIUM CHLORIDE FLUSH SYRINGE 10 ML IV SCH (11:52)
[2017-12-01] MEDS: LEVAQUIN 750MG/150ML 750 MG/150 ML BAG IV SCH (13:45)
[2017-12-02] MEDS ORDERED: LEVAQUIN PO SCH (10:00)
== END 2017-12-01 16:00 | disposition home or self-care (01) | DRG 446 ==
LOC: ED 02:58 → 3A 08:42
PROVIDERS: ADMIT Hospitalist; ATTEND Hospitalist
DX: K80.20 Calculus of gallbladder without cholecystitis without obstruction (principal); K21.9 Gastro-esophageal reflux disease without esophagitis; Z90.710 Acquired absence of both cervix and uterus; Z79.899 Other long term (current) drug therapy; Z88.8 Allergy status to other drugs, medicaments and biological substances; Z88.1 Allergy status to other antibiotic agents; Z80.41 Family history of malignant neoplasm of ovary; Z87.891 Personal history of nicotine dependence
CPT/HCPCS: 36415; 74177; 76705; 78226; 80048; 80053; 81001; 83690; 85025; 96372; 96374; 96375; A9537; J1170; J1650; J1956; J2270; J2405; J2543; J3370; J7030; J7040; J7050; Q9967